=== PATIENT | male | born 2005 | race Two or more races ===

== ENCOUNTER 2024-05-07 21:59 | Emergency (ER) | payer MEDICAID, OTHER ==
[~2024-05-07] VITALS: Ht 182.9 cm; Wt 85.7 kg
[2024-05-07 22:12] VITALS: BP 125/77; PULSE 74; RESP 16; TEMP 98; O2SAT 98
[2024-05-07] MEDS ORDERED: IBUP-1456 PO (22:36)
[2024-05-07] MEDS ORDERED: CYCL-837 PO (22:36)
--- NOTE | 2024-05-07 22:36 | ED.PDOC ---
Back pain HPI HPI Comments 18-YEAR-OLD MALE PRESENTS TO ER WITH COMPLAINTS OF BACK PAIN X1 DAY. PATIENT REPORTS HE STARTED EXPERIENCING LEFT LOWER LUMBAR BACK PAIN AT 4:00 P.M. PRIOR TO ARRIVAL TO ER S/P PICKING UP AN APPROXIMATELY "50 LB" TIRE AT WORK. DENIES ANY TRAUMA/FALLS. HE RATES HIS CURRENT PAIN AN 8/10 TO LEFT LOWER LUMBAR REGION WITH RADIATION DOWN POSTERIOR LEFT LEG. PATIENT PRESENTS TO ER AMBULATORY ON ARRIVAL, WITH STEADY GAIT, IN NO DISTRESS AND STATES HE'S TAKEN TYLENOL WITH SLIGHT RELIEF. DENIES FEVER, BODY ACHES, CHILLS, NIGHT SWEATS, NUMBNESS/TINGLING, SHORTNESS OF BREATH, CHEST PAIN, ABDOMINAL/PELVIC PAIN, EXTREMITY WEAKNESS, CHANGES IN URINATION/BM OR ANY FURTHER SYMPTOMS/COMPLAINTS Chief Complaint: Back Pain Time Seen by MD: 22:03 Primary Care Provider: UNKNOWN Reviewed Notes: Nurses Notes, Medications, Allergies Allergies: Coded Allergies: No Known Drug Allergy (Verified Allergy, Unknown, 05/07/24) Home Meds Active Scripts Ibuprofen (Ibuprofen) 800 Mg Tab, 1 TAB PO TID PRN, #30 TAB 0 Refills Prov:DAVEY LAKE 05/07/24 Cyclobenzaprine Hcl (Cyclobenzaprine Hcl) 5 Mg Tab, 1 TAB PO QHSP, #14 TAB 0 Refills Prov:DAVEY LAKE 05/07/24 Information Source: Patient Mode of Arrival: Ambulatory Past Medical History PAST MEDICAL HISTORY: Anxiety Surgical History: Denies all surgeries Family History Family History: Unknown Social History Smoker: Non-Smoker Alcohol: Denies ETOH Use Drugs: Denies Drug Use Lives In: Home Constitutional: denies: chills, diaphoresis, fatigue, fever, malaise, sweats, weakness, others EENTM: denies: blurred vision, double vision, ear bleeding, ear discharge, ear drainage, ear pain, ear ringing, eye pain, eye redness, hearing loss, mouth pain, mouth swelling, nasal discharge, nose bleeding, nose congestion, nose pain, photophobia, tearing, throat pain, throat swelling, voice changes, others Respiratory: denies: cough, hemoptysis, orthopnea, SOB at rest, shortness of breath, SOB with excertion, stridor, wheezing, others Cardiovascular: denies: chest pain, dizzy spells, diaphoresis, Dyspnea on exertion, edema, irregular heart beat, left arm pain, lightheadedness, palpitations, PND, syncope, others Gastrointestinal: denies: abdomen distended, abdominal pain, blood streaked bowels, constipated, diarrhea, dysphagia, difficulty swallowing, hematemesis, melena, nausea, poor appetite, poor fluid intake, rectal bleeding, rectal pain, vomiting, others Genitourinary: denies: burning, dysuria, flank pain, frequency, hematuria, incontinence, penile discharge, penile sore, pain, testicle pain, testicle swelling, urgency, others Neurological: denies: dizziness, fainting, headache, left sided numbness, left sided weakness, numbness, paresthesia, pre-existing deficit, right sided numbness, right sided weakness, seizure, speech problems, tingling, tremors, weakness, others Musculoskeletal: reports: others ( STATED IN HPI) Integumetry: denies: bruises, change in color, change in hair/nails, dryness, laceration, lesions, lumps, rash, wounds, others Allergic/Immunocompromised: denies: Difficulty Healing, Frequent Infections, Hives, Itching, others Hematologic/Lymphatic: denies: anemia, blood clots, easy bleeding, easy bruising, swollen glands, others Endocrine: denies: excessive hunger, excessive sweating, excessive thirst, excessive urination, flushing, intolerance to cold, intolerance to heat, unexplained weight gain, unexplained weight loss, others Psychiatric: denies: anxiety, bipolar disorder, depression, hopeless, panic disorder, schizophrenia, sleepless, suicidal, others Physical Exam General Appearance: No Apparent Distress HEENT: PERRL/EOMI Neck: Full Range of Motion, Non-Tender, Normal Respiratory: Chest Non-Tender, Lungs Clear, No Accessory Muscle Use, No Respiratory Distress, Normal Breath Sounds Cardiovascular: No Murmur, No Gallop, Regular Rate/Rhythm Breast Exam: Deferred Gastrointestinal: Non Tender, No Pulsatile Mass, Soft Genitalia: Deferred Pelvic: Deferred Rectal: Deferred Extremities: Normal capillary refill, Normal range of motion Musculoskeletal : Extremity Location: Back (TTP TO LEFT LOWER LUMBAR PARASPINALS NOTED. NO SKIN CHANGES NOTED. NO BONY TENDERNESS TO SPINE APPRECIATED. STEADY GAIT NOTED) Neurologic: Alert, photogrammetric compilation specialist II-XII nml as Tested, No Motor Deficits, Normal Affect, Normal Mood, No Sensory Deficits Cerebellar Function: Normal Reflexes: Normal Skin: Dry, Normal Color, Warm Peripheral Pulses: 2+ femoral (R), 2+ femoral (L), 2+ dorsalis pedis (R), 2+ dorsalis pedis (L) Lymphatic: No Adenopathy Was a procedure done? Was a procedure done?: No Sedation Sedation?: No Back Pain Differential Dx Differential Diagnosis: AAA, Fracture, Urolithiasis, Other (NEUROVASCULAR INJURY) X-Ray, Labs, Meds, VS Vital Signs Date Time Temp Pulse Resp B/P (MAP) Pulse Ox O2 Delivery O2 Flow Rate FiO2 05/07/24 22:12 98.0 74 16 125/77 (93) 98 98.0 Current Medications Medications (Trade) Dose Ordered Sig/Tylor Route Start Time Stop Time Status Last Admin Acetaminophen/ Hydrocodone Bitart ([place] 5/325MG Tab) 1 tab ONCE ONCE PO 05/07/24 22:45 05/07/24 22:46 DC 05/07/24 22:46 Ondansetron HCl (Zofran Po) 4 mg ONCE ONCE PO 05/07/24 22:45 05/07/24 22:46 DC 05/07/24 22:46 NORCO 5/325 MG P.O. ORDERED ZOFRAN 4 MG P.O. ORDERED PATIENT NEUROVASCULARLY INTACT AND REPORTED IMPROVEMENT IN SYMPTOMS PRIOR TO DISCHARGE ADVISED ON REST/NO STRENUOUS ACTIVITY PATIENT STATED THAT CURRENT ER VISIT IS NOT UNDER WORKMAN'S COMP ADVISED TO FOLLOW UP WITH PCP IN 1-2 DAYS PATIENT VERBALIZED UNDERSTANDING AND AGREEABLE WITH CURRENT PLAN OF CARE ADVISED TO RETURN TO ER IMMEDIATELY IF SYMPTOMS WORSEN Time of 1ST Reevaluation: 22:12 Reevaluation 1ST: N/A Patient Education/Counseling: Diagnosis, Treatment, Prognosis, Need For Follow Up Family Education/Counseling: No Family Present Departure 1 Departure Time of Disposition: 22:32 Impression: Primary Impression: Lumbar strain Qualified Codes: S39.012A - Strain of muscle, fascia and tendon of lower back, initial encounter Disposition: HOME / SELF CARE / HOMELESS Condition: Stable e-Prescriptions Ibuprofen (Ibuprofen) 800 Mg Tab 1 TAB PO TID PRN, #30 TAB 0 Refills Prov: DAVEY LAKE 05/07/24 Cyclobenzaprine Hcl (Cyclobenzaprine Hcl) 5 Mg Tab 1 TAB PO QHSP, #14 TAB 0 Refills Prov: DAVEY LAKE 05/07/24 Discharged With: Friend Critical Care Note Critical Care Time?: No Stability Stability form required: No Heart Score Heart Score: Heart Score Response (Comments) Value History N/A 0 EKG N/A 0 Age N/A 0 Risk Factors N/A 0 Troponin N/A 0 Total 0 DAVEY LAKE May 07, 2024 22:36
[2024-05-07] MEDS: ONDANSETRON ODT 4 MG TAB PO ONE (22:46)
[2024-05-07] MEDS: HYDROcodone-ACET 5/325MG TAB PO ONE (22:46)
== END 2024-05-07 22:51 | disposition home or self-care (01) ==
LOC: ER 21:59
DX: S39.012A Strain of muscle, fascia and tendon of lower back, initial encounter (principal); F41.9 Anxiety disorder, unspecified; Z79.899 Other long term (current) drug therapy; X58.XXXA Exposure to other specified factors, initial encounter; Y92.89 Other specified places as the place of occurrence of the external cause; Y93.89 Activity, other specified; Y99.0 Civilian activity done for income or pay
CPT/HCPCS: 99283; Q0162

== ENCOUNTER 2024-05-16 20:35 | Emergency (ER) | payer MEDICAID ==
[~2024-05-16] VITALS: Ht 182.9 cm; Wt 87.6 kg
[~2024-05-16 20:35] MED LIST: CYCL-837 PO; IBUP-1456 PO
--- NOTE | 2024-05-16 21:41 | DVH ---
Procedure: CT LS SPINE WO CONTRAST 05/16/2024 09:06 PM Indication: Status post injury and pain Comparison Study: None. Technique: Axial images were obtained and reformatted in coronal and sagittal planes. All CT scans at this medical facility are performed using dose modulation techniques as appropriate t o a performed exam including the following: Automated exposure control was utilized; adjustment of th e MA and/or KV according to patient size; and use of iterative reconstruction technique. CT Dose: CTDI volume is 18 mGy. Dose-length product is 673 mGy*cm FINDINGS: Bones: The vertebra are normal in height. Normal alignment noted. Disc spaces are maintained. No sig nificant discogenic endplate change. The posterior facet joints are unremarkable. The sacroiliac maria t ints are maintained. Soft tissues: Paraspinal soft tissues are within normal limits. Other: None. IMPRESSION: 1. No acute osseous abnormality.
--- NOTE | 2024-05-16 22:03 | DVH ---
CT OF THE THORACIC SPINE WITHOUT CONTRAST HISTORY: Status post injury and pain COMPARISON: None TECHNIQUE: Axial images through the thoracic spine were obtained without contrast. Coronal and sagitt al reformats were obtained. One or more of the following radiation dose reduction techniques were use d for this examination: automated exposure control, adjustment of the mA and/or kV according to patie nt size, use of iterative reconstruction technique. FINDINGS: There are 12 rib-bearing thoracic type vertebral bodies. Alignment is maintained. Vertebral body hei ghts are maintained. There is no acute fracture. Overlying Soft tissues are intact. Visualized lungs are clear. IMPRESSION: No acute fracture or traumatic malalignment.
[2024-05-16] MEDS ORDERED: METH4PAK PO (22:32)
--- NOTE | 2024-05-16 22:32 | ED.PDOC ---
Back pain HPI HPI Comments C/C of back pain. 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 Pt was placed on light modified duty, but placed back to full regular activity this past Sunday and feels like back pain has increased. Reports pain from mid back to lower back. Pt able to ambulate with slow steady gait. Rates pain 07/15. Chief Complaint: Back Pain Time Seen by MD: 20:39 Primary Care Provider: UNKNOWN Reviewed Notes: Nurses Notes, Medications, Allergies Allergies: Coded Allergies: No Known Drug Allergy (Verified Allergy, Unknown, 05/07/24) Home Meds Active Scripts Methylprednisolone (Medrol Dosepak) 4 Mg Prabhjot, 4 MG PO UD for 6 Days, #21 TAB UAD Prov:[facility] 05/16/24 Ibuprofen (Ibuprofen) 800 Mg Tab, 1 TAB PO TID PRN, #30 TAB 0 Refills Prov:DAVEY LAKE 05/07/24 Cyclobenzaprine Hcl (Cyclobenzaprine Hcl) 5 Mg Tab, 1 TAB PO QHSP, #14 TAB 0 Refills Prov:DAVEY LAKE 05/07/24 Information Source: Patient Mode of Arrival: Ambulatory Past Medical History PAST MEDICAL HISTORY: Anxiety Surgical History: Denies all surgeries Family History Family History: Unknown Social History Smoker: Non-Smoker Alcohol: Denies ETOH Use Drugs: Denies Drug Use Lives In: Home Constitutional: denies: chills, diaphoresis, fatigue, fever, malaise, sweats, weakness, others EENTM: denies: blurred vision, double vision, ear bleeding, ear discharge, ear drainage, ear pain, ear ringing, eye pain, eye redness, hearing loss, mouth pain, mouth swelling, nasal discharge, nose bleeding, nose congestion, nose pain, photophobia, tearing, throat pain, throat swelling, voice changes, others Respiratory: denies: cough, hemoptysis, orthopnea, SOB at rest, shortness of breath, SOB with excertion, stridor, wheezing, others Cardiovascular: denies: chest pain, dizzy spells, diaphoresis, Dyspnea on exertion, edema, irregular heart beat, left arm pain, lightheadedness, pa lpitations, PND, syncope, others Gastrointestinal: denies: abdomen distended, abdominal pain, blood streaked bowels, constipated, diarrhea, dysphagia, difficulty swallowing, hematemesis, melena, nausea, poor appetite, poor fluid intake, rectal bleeding, rectal pain, vomiting, others Genitourinary: denies: burning, dysuria, flank pain, frequency, hematuria, incontinence, penile discharge, penile sore, pain, testicle pain, testicle swelling, urgency, others Neurological: denies: dizziness, fainting, headache, left sided numbness, left sided weakness, numbness, paresthesia, pre-existing deficit, right sided numbness, right sided weakness, seizure, speech problems, tingling, tremors, weakness, others Musculoskeletal: reports: back pain; denies: gout, joint pain, joint swelling, muscle pain, muscle stiffness, neck pain, others Integumetry: denies: bruises, change in color, change in hair/nails, dryness, laceration, lesions, lumps, rash, wounds, others Allergic/Immunocompromised: denies: Difficulty Healing, Frequent Infections, Hives, Itching, others Hematologic/Lymphatic: denies: anemia, blood clots, easy bleeding, easy bruising, swollen glands, others Endocrine: denies: excessive hunger, excessive sweating, excessive thirst, excessive urination, flushing, intolerance to cold, intolerance to heat, unexplained weight gain, unexplained weight loss, others Psychiatric: denies: anxiety, bipolar disorder, depression, hopeless, panic disorder, schizophrenia, sleepless, suicidal, others Physical Exam General Appearance: No Apparent Distress, Normal HEENT: Pharynx Normal Neck: Full Range of Motion, Non-Tender Respiratory: Lungs Clear, No Respiratory Distress, Normal Breath Sounds Cardiovascular: No Edema, No JVD, No Murmur, No Gallop, Normal Peripheral Pulses, Regular Rate/Rhythm Breast Exam: Deferred Gastrointestinal: No Organomegaly, Non Tender, No Pulsatile Mass, Normal Bowel Sounds, Soft Genitalia: Deferred Pelvic: Deferred Rectal: Deferred Extremities: Normal capillary refill, Normal inspection, Normal range of motion, Non-tender, No pedal edema Musculoskeletal : Location: Left Extremity Location: Back (Moderate tenderness on palpation T8 through L1 paraspinal muscles. Thoracic and lumbar spine no noted crepitus or step-offs. Strength sensory motion intact. Positive pedal pulses. 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 Was a procedure done?: No Back Pain Differential Dx Differential Diagnosis: Fracture, Musculoskeletal Pain X-Ray, Labs, Meds, VS Vital Signs Date Time Temp Pulse Resp B/P (MAP) Pulse Ox O2 Delivery O2 Flow Rate FiO2 05/16/24 22:45 82 18 96 Room Air 05/16/24 22:45 98.1 82 18 118/65 (82) 96 98.1 05/16/24 20:48 98.3 73 16 151/95 (113) 99 98.3 Current Medications Medications (Trade) Dose Ordered Sig/Tylor Route Start Time Stop Time Status Last Admin Acetaminophen/ Hydrocodone Bitart ([place] 5/325MG Tab) 1 tab ONCE ONCE PO 05/16/24 22:30 05/16/24 22:31 DC 05/16/24 22:43 Ibuprofen (Motrin Tablet) 600 mg ONCE ONCE PO 05/16/24 22:30 05/16/24 22:31 DC 05/16/24 22:43 X-Ray, Labs, Meds, VS Comment CT thoracic and lumbar spine show no acute fractures osseous lesions, or subluxations shows no chronic arthritic changes as well. Patient given [place] 5 mg and ibuprofen 600 mg he reports improvement in pain and symptoms and function requesting discharge at this time. Advised patient to f ollow up with [facility] recommend physical therapy. Advised to follow up with his PCP in 2-3 days consider further imaging such as MRI if symptoms persist. Discussed ice and heat. ER return precautions given patient indicates understanding and agrees with discharge plan of care. Time of 1ST Reevaluation: 22:30 Reevaluation 1ST: Improved Patient Education/Counseling: Diagnosis, Treatment, Prognosis, Need For Follow Up Family Education/Counseling: Diagnosis, Treatment, Prognosis, Need For Follow Up Departure 1 Departure Time of Disposition: 22:41 Impression: Primary Impression: Lumbar sprain Qualified Codes: S33.5XXD - Sprain of ligaments of lumbar spine, subsequent encounter Additional Impression: Musculoskeletal pain Disposition: HOME / SELF CARE / HOMELESS Condition: Stable e-Prescriptions Methylprednisolone (Medrol Dosepak) 4 Mg Prabhjot 4 MG PO UD for 6 Days, #21 TAB UAD Prov: SOLIS NICHOLSON 05/16/24 Discharged With: Significant Other Critical Care Note Critical Care Time?: No Stability Stability form required: SOLIS Wilks May 16, 2024 22:32
[2024-05-16] MEDS: IBUPROFEN 600 MG TAB PO ONE (22:43)
[2024-05-16] MEDS: HYDROcodone-ACET 5/325MG TAB PO ONE (22:43)
[2024-05-16 22:45] VITALS: BP 118/65; PULSE 82; RESP 18; TEMP 98.1; O2SAT 96
== END 2024-05-16 23:02 | disposition home or self-care (01) ==
LOC: ER 20:35
DX: S33.5XXA Sprain of ligaments of lumbar spine, initial encounter (principal); M79.18 Myalgia, other site; F41.9 Anxiety disorder, unspecified; X58.XXXA Exposure to other specified factors, initial encounter; Y93.89 Activity, other specified; Y92.89 Other specified places as the place of occurrence of the external cause; Y99.0 Civilian activity done for income or pay
CPT/HCPCS: 72128; 72131

== ENCOUNTER 2024-06-17 11:17 | Emergency (ER) | payer MEDICAID, OTHER ==
[~2024-06-17] VITALS: Ht 182.9 cm; Wt 88.4 kg
[2024-06-17] MEDS: KETOROLAC TROMETH 30 MG/ML 1ML VIAL IM ONE (11:58)
--- NOTE | 2024-06-17 12:00 | ED.PDOC ---
Back pain HPI HPI Comments 18-YEAR-OLD MALE PRESENTS TO ER WITH COMPLAINTS OF BACK PAIN. INJURY OCCURRED May. HAS BEEN SEEN TWICE FOR THE SAME COMPLAINT PATIENT REPORTS HE STARTED EXPERIENCING LEFT LOWER LUMBAR BACK PAIN AT 4:00 P.M. PRIOR TO ARRIVAL TO ER S/P PICKING UP AN APPROXIMATELY "50 LB" TIRE AT WORK. DENIES ANY TRAUMA/FALLS. HE RATES HIS CURRENT PAIN MODERATE. PATIENT PRESENTS TO ER AMBULATORY ON ARRIVAL, WITH STEADY GAIT, IN NO DISTRESS AND STATES HE'S TAKEN TYLENOL WITH SLIGHT RELIEF. DENIES FEVER, BODY ACHES, CHILLS, NIGHT SWEATS, NUMBNESS/TINGLING, SHORTNESS OF BREATH, CHEST PAIN, ABDOMINAL/PELVIC PAIN, EXTREMITY WEAKNESS, CHANGES IN URINATION/BM OR ANY FURTHER SYMPTOMS/COMPLAINTS Chief Complaint: Back Pain Time Seen by MD: 11:27 Primary Care Provider: NONE Reviewed Notes: Nurses Notes, Medications, Allergies Allergies: Coded Allergies: No Known Drug Allergy (Verified Allergy, Unknown, 05/07/24) Home Meds Active Scripts Ibuprofen (Ibuprofen) 800 Mg Tab, 1 TAB PO TID PRN, #30 TAB 0 Refills Prov:DAVEY LAKE 05/07/24 Cyclobenzaprine Hcl (Cyclobenzaprine Hcl) 5 Mg Tab, 1 TAB PO QHSP, #14 TAB 0 Refills Prov:DAVEY LAKE 05/07/24 Information Source: Patient Mode of Arrival: Ambulatory Past Medical History PAST MEDICAL HISTORY: Anxiety Surgical History: Denies all surgeries Family History Family History: Unknown Social History Smoker: Non-Smoker Alcohol: Denies ETOH Use Drugs: Denies Drug Use Lives In: Home All Other Systems: Reviewed and Negative (per hpi) Physical Exam General Appearance: No Apparent Distress, Normal HEENT: Normal ENT Inspection, Pharynx Normal, TMs Normal Neck: Full Range of Motion, Non-Tender, Normal, Normal Inspection Respiratory: Chest Non-Tender, Lungs Clear, No Accessory Muscle Use, No Respiratory Distress, Normal Breath Sounds Cardiovascular: No Edema, No JVD, No Murmur, No Gallop, Normal Peripheral Pulses, Regular Rate/Rhythm Breast Exam: Deferred Gastrointestinal: No Organomegaly, Non Tender, No Pulsatile Mass, Normal Bowel Sounds, Soft Genitalia: Deferred Pelvic: Deferred Rectal: Deferred Extremities: No calf tenderness, Normal capillary refill, Normal inspection, Normal range of motion, Non-tender, No pedal edema Musculoskeletal : Apperance: Normal Neurologic: Alert, pressing machine tender II-XII nml as Tested, No Motor Deficits, Normal Affect, Normal Mood, No Sensory Deficits Cerebellar Function: Normal Reflexes: Normal Skin: Dry, Normal Color, Warm Lymphatic: No Adenopathy Was a procedure done? Was a procedure done?: No Back Pain Differential Dx Differential Diagnosis: Musculoskeletal Pain X-Ray, Labs, Meds, VS Vital Signs Date Time Temp Pulse Resp B/P (MAP) Pulse Ox O2 Delivery O2 Flow Rate FiO2 06/17/24 12:10 96 16 96 Room Air 06/17/24 12:10 98.0 97 17 135/68 (90) 97 98.0 06/17/24 11:21 97.8 105 20 141/75 (97) 96 97.8 X-Ray, Labs, Meds, VS Comment Presentation most consistent with nonemergent musculoskeletal etiology versus nonemergent disc herniation. ED workup: Defer imaging and lab work for outpatient follow up at this time. Patient advised to follow up with the Occupational Health Disposition: Discharge. Strict return precautions discussed with the patient with full understanding. Supportive care advised (rest, ice, heat, NSAIDs, stretching exercises) Massage muscles with cold pack or ice for 20 minutes 4 times per day. Usually most useful if there is swelling during the first 48 hours Heating pad on the most painful area for 20 minutes to relieve muscle spasm Sleep and the most comfortable sleeping position (usually on the side with knees bent) Light stretching, no strenuous activity, avoid frequent bending, avoid carrying heavy objects Discussed possible benefits of yoga and acupuncture Patient is stable for discharge at this time. External notes reviewed. Test results and diagnostic imaging interpreted. All diagnostic findings, discharge care, education and instructions provided Follow-up with PCP in 2 to 3 days Patient verbalized understanding and agreed to treatment plan Vital signs stable, afebrile, no acute distress noted Patient ambulatory with strong steady gait Advised to return precautions for any new or worsening symptoms, return to ER immediately for re-evaluation Patient is aware that the purpose of this visit was for an acute medical emergency requiring emergent stabilization. Chronic conditions, including malignancies have not been ruled out. Patient is instructed to follow up with PCP as directed and discharge instructions for continued care and workup. If unable to arrange follow-up, patient is to return to the emergency department for reassessment. Patient (parent or legal guardian if applicable) was given verbal and written discharge instructions and acknowledges understanding. Time of 1ST Reevaluation: 12:00 Reevaluation 1ST: Improved Patient Education/Counseling: Diagnosis, Treatment Family Education/Counseling: Diagnosis, Treatment Departure 1 Departure Time of Disposition: 12:00 Impression: Primary Impression: Lumbar strain Qualified Codes: S39.012S - Strain of muscle, fascia and tendon of lower back, sequela Disposition: HOME / SELF CARE / HOMELESS Condition: Stable Critical Care Note Critical Care Time?: No Stability Stability form required: No Heart Score Heart Score: Heart Score Response (Comments) Value History N/A 0 EKG N/A 0 Age N/A 0 Risk Factors N/A 0 Troponin N/A 0 Total 0 VAN ESPINOZA NP June 17, 2024 12:00
[2024-06-17 12:10] VITALS: BP 135/68; PULSE 96; RESP 16; TEMP 98; O2SAT 96
== END 2024-06-17 12:12 | disposition home or self-care (01) ==
LOC: ER 11:19
DX: S39.012A Strain of muscle, fascia and tendon of lower back, initial encounter (principal); F41.9 Anxiety disorder, unspecified; X58.XXXA Exposure to other specified factors, initial encounter; Y93.89 Activity, other specified; Y92.89 Other specified places as the place of occurrence of the external cause; Y99.0 Civilian activity done for income or pay
CPT/HCPCS: J1885

== ENCOUNTER 2024-07-13 22:52 | Emergency (ER) | payer MEDICAID, OTHER ==
[~2024-07-13] VITALS: Ht 182.9 cm; Wt 85.5 kg
[2024-07-13 23:05] VITALS: BP 137/87; RESP 30; TEMP 98.2; O2SAT 100
[2024-07-13 23:07] VITALS: PULSE 123
--- NOTE | 2024-07-13 23:07 | ED.PDOC ---
History of Present Illness HPI Comments 18-year-old obese male presents with complaint of chest pain, palpitations, and bilateral hand tingling sensations following unknown substance indigestion. Patient reports taken an unknown substance from another individual from a [employer] he was attending at, earlier, this evening. He states on taking half a dose of his usual Xanax prescription medication for panic attacks, with no relief or improvement of symptoms. No further associated symptoms reported. No endorsement of further significant medical history or other illicit substance use. Time Seen by MD: 23:00 Primary Care Provider: NONE Reviewed Notes: Nurses Notes, Medications, Allergies Allergies: Coded Allergies: No Known Drug Allergy (Verified Allergy, Unknown, 05/07/24) Home Meds Active Scripts Ibuprofen (Ibuprofen) 800 Mg Tab, 1 TAB PO TID PRN, #30 TAB 0 Refills Prov:DAVEY LAKE 05/07/24 Cyclobenzaprine Hcl (Cyclobenzaprine Hcl) 5 Mg Tab, 1 TAB PO QHSP, #14 TAB 0 Refills Prov:DAVEY LAKE 05/07/24 Information Source: Patient Mode of Arrival: Ambulatory Severity: Moderate Timing: Hours Duration: Since onset Prehospital treatment: Other (Prescription Xanax medication use) Past Medical History PAST MEDICAL HISTORY: Anxiety (On Xanax) Surgical History: Denies all surgeries Family History Family History: Unknown Social History Smoker: Non-Smoker Alcohol: Denies ETOH Use Drugs: Denies Drug Use Lives In: Home Constitutional: denies: chills, diaphoresis, fatigue, fever, malaise, sweats, weakness, others EENTM: denies: blurred vision, double vision, ear bleeding, ear discharge, ear drainage, ear pain, ear ringing, eye pain, eye redness, hearing loss, mouth pain, mouth swelling, nasal discharge, nose bleeding, nose congestion, nose devan n, photophobia, tearing, throat pain, throat swelling, voice changes, others Respiratory: denies: cough, hemoptysis, orthopnea, SOB at rest, shortness of breath, SOB with excertion, stridor, wheezing, others Cardiovascular: reports: chest pain, palpitations; denies: dizzy spells, diaphoresis, Dyspnea on exertion, edema, irregular heart beat, left arm pain, lightheadedness, PND, syncope, others Gastrointestinal: denies: abdomen distended, abdominal pain, blood streaked bowels, constipated, diarrhea, dysphagia, difficulty swallowing, hematemesis, melena, nausea, poor appetite, poor fluid intake, rectal bleeding, rectal pain, vomiting, others Genitourinary: denies: burning, dysuria, flank pain, frequency, hematuria, incontinence, penile discharge, penile sore, pain, testicle pain, testicle swelling, urgency, others Neurological: denies: dizziness, fainting, headache, left sided numbness, left sided weakness, numbness, paresthesia, pre-existing deficit, right sided numbness, right sided weakness, seizure, speech problems, tingling, tremors, weakness, others Musculoskeletal: reports: others (Hand tingling); denies: back pain, gout, joint pain, joint swelling, muscle pain, muscle stiffness, neck pain Integumetry: denies: bruises, change in color, change in hair/nails, dryness, laceration, lesions, lumps, rash, wounds, others Allergic/Immunocompromised: denies: Difficulty Healing, Frequent Infections, Hives, Itching, others Hematologic/Lymphatic: denies: anemia, blood clots, easy bleeding, easy bruising, swollen glands, others Endocrine: denies: excessive hunger, excessive sweating, excessive thirst, excessive urination, flushing, intolerance to cold, intolerance to heat, unexplained weight gain, unexplained weight loss, others Psychiatric: reports: anxiety; denies: bipolar disorder, depression, hopeless, panic disorder, schizophrenia, sleepless, suicidal, others All Other Systems: Reviewed and Negative (Comprehensive review of systems are negative unless otherwise stated in HPI) Physical Exam General Appearance: Moderate Distress (Patient appears anxious and intoxicated on an unknown substance.), Normal HEENT: Pharynx Normal, TMs Normal, Other (Pupils appear mildly dilated.) Neck: Full Range of Motion, Non-Tender, Normal, Normal Inspection Respiratory: Chest Non-Tender, Lungs Clear, No Accessory Muscle Use, No Respiratory Distress, Normal Breath Sounds Cardiovascular: No Edema, No JVD, No Murmur, No Gallop, Normal Peripheral Pulses, Regular Rate/Rhythm Breast Exam: Deferred Gastrointestinal: No Organomegaly, Non Tender, No Pulsatile Mass, Normal Bowel Sounds, Soft Genitalia: Deferred Pelvic: Deferred Rectal: Deferred Extremities: No calf tenderness, Normal capillary refill, Normal inspection, Normal range of motion, Non-tender, No pedal edema Neurologic: Alert, No Motor Deficits, No Sensory Deficits Cerebellar Function: NOT DONE Reflexes: NOT DONE Skin: Dry, Normal Color, Warm Lymphatic: No Adenopathy Was a procedure done? Was a procedure done?: No EKG EKG : Pulse Rate (adult): 123 [place]: Normal Cardiac Rhythm: ST Block: None Hypertrophy: None ST: Normal Differential Dx Considerations may include: anxiety, substance intoxication, substance abuse/dependency, panic attack, among others X-Ray, Labs, Meds, VS Vital Signs Date Time Temp Pulse Resp B/P (MAP) Pulse Ox O2 Delivery O2 Flow Rate FiO2 07/13/24 23:07 123 07/13/24 23:05 98.2 130 30 137/87 (104) 100 98.2 07/13/24 23:00 123 Lab Test 07/13/24 23:14 07/13/24 23:06 Range/Units White Blood Count Pending Red Blood Count Pending Hemoglobin Pending Hematocrit Pending Mean Corpuscular Volume Pending Mean Corpuscular Hemoglobin Pending Mean Corpuscular Hemoglobin Concent Pending Red Cell Distribution Width Pending Platelet Count Pending Mean Platelet Volume Pending Neutrophils (%) (Auto) Pending Lymphocytes (%) (Auto) Pending Monocytes (%) (Auto) Pending Basophils (%) (Auto) Pending Neutrophils # (Auto) Pending Lymphocytes # (Auto) Pending Monocytes # (Auto) Pending Sodium Level 140 136-145 mmol/L Potassium Level 3.4 L 3.5-5.1 mmol/L Chloride Level 104 98-107 mmol/L Carbon Dioxide Level 24 20-31 mmol/L Anion Gap 12 5-15 Blood Urea Nitrogen 13 9-23 mg/dL Creatinine 1.17 0.700-1.30 mg/dL Glomerular Filtration Rate Calc 92 >90 mL/min BUN/Creatinine Ratio 11.1 10.0-20.0 Serum Glucose 110 H 74-106 mg/dL Calcium Level 9.9 8.7-10.4 mg/dL Urine Color Pending Urine Clarity Pending Urine pH Pending Urine Specific Protem Pending Urine Protein Pending Urine Ketones Pending Urine Blood Pending Urine Nitrite Pending Urine Bilirubin Pending Urine Urobilinogen Pending Urine Leukocyte Esterase Pending Urine RBC Pending Urine Microscopic WBC Pending Urine Squamous Epithelial Cells Pending Urine Bacteria Pending Urine Glucose Pending Urine Opiates Screen Neg NEGATIVE Urine Fentanyl Screen Neg NEGATIVE Urine Barbiturates Screen Neg NEGATIVE Urine Phencyclidine Screen Neg NEGATIVE Urine Amphetamines Screen Neg NEGATIVE Urine Benzodiazepines Screen Neg NEGATIVE Urine Cocaine Screen Pos NEGATIVE Urine Cannabinoids Screen Neg NEGATIVE X-Ray, Labs, Meds, VS Comment All studies performed the ED were evaluated by me personally. EKG revealed a sinus tachycardia with a rate of 123. Possible right atrial enlargement and possible right ventricular hypertrophy. NE interval of 156 and QT interval of 318. Serum laboratories were unremarkable, but tox screen confirmed cocaine use. Urinalysis was pending at time of this note patient came to the window and informed staff that he felt that at her was went to leave. Patient was advised to stay, but stated he was leaving. Patient signed an AMA form prior to leaving the campus. Time of 1ST Reevaluation: 23:56 Reevaluation 1ST: Improved Consultation: PCP Patient Education/Counseling: Diagnosis, Treatment, Need For Follow Up Family Education/Counseling: Diagnosis, Treatment, No Family Present Departure 1 Departure Time of Disposition: 23:58 Impression: Primary Impression: Anxiety Additional Impression: Cocaine use Disposition: 07 LEFT AGAINST MEDICAL ADVICE Condition: Fair Discharged With: Self Critical Care Note Critical Care Time?: No Stability Stability form required: No Heart Score Heart Score: Heart Score Response (Comments) Value History Slightly Suspicious 0 EKG Repolarization Disturb 1 Age <45 0 Risk Factors No known risk factors 0 Troponin Normal limit 0 Total 1 I personally scribed for ALEXANDR CARRASCO PAC ([email or web address]) on 07/13/24 at 23:07. Electronically submitted by Mark Aponte ([email or web address]). ALEXANDR CARRASCO PAC Jul 13, 2024 23:07
[2024-07-13] MEDS ORDERED: SODIUM CHLORIDE 0.9% 1,000 ML IV ONE (23:15)
[2024-07-13 23:16] LABS: Urine Bacteria None Seen /hpf (None Seen)
[2024-07-13 23:36] LABS: Basophils # (auto) 0 10 ^3/uL (0-0.2); Basophils % (auto) 0.6 % (0.0-2.0); Eosinophils # (auto) 0.1 10 ^3/uL (0-0.8); Eosinophils % (auto) 1.5 % (0.0-7.0); Hematocrit 42.7 % (41.0-53.0); Hemoglobin 15.1 g/dL (13.5-17.5); Lymphocytes # (auto) 1.6 10 ^3/uL (0.4-5.4); Lymphocytes % (auto) 30.2 % (10.0-50.0); Mean Corpuscular Hgb Conc. 35.5 g/dL (32.0-36.0); Mean Corpuscular Volume 81.7 fL (80.0-100.0); Monocytes # (auto) 0.3 10 ^3/uL (0-1.3); Monocytes % (auto) 6.2 % (0.0-12.0); Neutrophils # (auto) 3.3 10 ^3/uL (1.6-8.6); Neutrophils % (auto) 61.5 % (37.0-80.0); Nucleated Red Blood Cells % 0.1 %; Platelet Count (auto) 239 10^3/uL (140-450); Red Blood Cells 5.22 10^6/uL (4.5-5.90); Red Cell Distribution Width 13.1 % (11.8-14.3); White Blood Cell 5.3 10^3/uL (4.4-10.8)
[2024-07-13 23:38] LABS: Urine Blood Negative /uL (Negative); Urine Clarity Clear (Clear); Urine Color Light-Yellow (Yellow); Urine Protein, UAD Negative (Negative); Urine Specific Gravity 1.015 (1.001-1.035); Urine Squamous Epithelial Cell None Seen /hpf (<5); Urine Urobilinogen Normal (Negative); Urine WBC < 1 /HPF (0-3)
[2024-07-13 23:40] LABS: Chloride 104 mmol/L (98-107); Sodium 140 mmol/L (136-145)
[2024-07-13 23:41] LABS: Anion Gap 12 (5-15); Calcium 9.9 mg/dL (8.7-10.4); Carbon Dioxide 24 mmol/L (20-31)
[2024-07-13 23:43] LABS: Potassium 3.4 mmol/L (3.5-5.1)
[2024-07-13 23:45] LABS: Opiate Scree,Urine Neg (NEGATIVE)
[2024-07-13 23:46] LABS: BUN/Creatinine Ratio 11.1 (10.0-20.0); Blood Urea Nitrogen 13 mg/dL (9-23)
[2024-07-13 23:48] LABS: Amphetamine Screen, Urine Neg (NEGATIVE); Barbiturate Scree,Urine Neg (NEGATIVE); Benzodiazephine Screen, Urine Neg (NEGATIVE); Cannabinoid Screen, Urine Neg (NEGATIVE); Cocaine Screen, Urine Pos (NEGATIVE); Phencyclidine Screen, Urine Neg (NEGATIVE)
[2024-07-13 23:52] LABS: Glucose 110 mg/dL (74-106)
--- NOTE | 2024-07-14 12:24 | ECG ---
[facility] Test Date: 2024-07-13 Test Time: 23:00:20 Pat Name: ARIEL US Department: ED Room: Gender: M Insulation Professional: : [id number] Requested By: ALEXANDR CARRASCO Order Number: [id number] Reading MD: Aniket Frost Measurements Intervals Speculator Rate: 123 P: 79 [place]: 156 QRS: 96 QRSD: 95 T: 29 QT: 318 QTc: 455 Interpretive Statements Sinus tachycardia Consider right atrial enlargement Consider right ventricular hypertrophy Electronically Signed On 07-16-2024 20:56:31 PDT by Aniket Frost Please click the below link to view image of tracing.
== END 2024-07-13 23:48 | disposition left against medical advice (07) ==
LOC: ER 22:52
DX: F14.90 Cocaine use, unspecified, uncomplicated (principal); F41.9 Anxiety disorder, unspecified; E66.9 Obesity, unspecified; Z79.899 Other long term (current) drug therapy
CPT/HCPCS: 36415; 80048; 80307; 81001; 85025; 93005

== ENCOUNTER 2024-08-03 19:00 | Emergency (ER) | payer MEDICAID ==
[~2024-08-03] VITALS: Ht 182.9 cm; Wt 180.0 kg
--- NOTE | 2024-08-03 19:06 | ED.PDOC ---
SOB-HPI HPI Comments PT PRESENTS TO ED W/CC OF SOB. PT SAYS HE WAS HAVING BACK PAIN TODAY SO HE TOOK PERCOCET FOR PAIN AND ALSO SMOKED MARIJUANA, AFTER WHICH PATIENT REPORTS FEELING LIKE HE IS BREATHING SLOW AND IS CONCERNED THAT HE IS NOT GETTING ENOUGH OXYGEN. CURRENTLY PT A&OX4, VSS, RR EVEN UNLABORED ON RA. Time Seen by MD: 19:03 Primary Care Provider: NONE Reviewed notes: Nurses Notes, Medications, Allergies Information Source: Patient Past Medical History PAST MEDICAL HISTORY: Anxiety Surgical History: Denies all surgeries Family History Family History: Reviewed,noncontributory to illness, Unknown Social History Smoker: Non-Smoker Alcohol: Denies ETOH Use Drugs: Denies Drug Use Lives In: Home Constitutional: reports: weakness, others (SLEEPINESS); denies: chills, diaphoresis, fatigue, fever, malaise, sweats EENTM: denies: blurred vision, double vision, ear bleeding, ear discharge, ear drainage, ear pain, ear ringing, eye pain, eye redness, hearing loss, mouth pain, mouth swelling, nasal discharge, nose bleeding, nose congestion, nose pain, photophobia, tearing, throat pain, throat swelling, voice changes, others Respiratory: reports: cough, shortness of breath; denies: hemoptysis, orthopnea, SOB at rest, SOB with excertion, stridor, wheezing, others Cardiovascular: denies: chest pain, dizzy spells, diaphoresis, Dyspnea on exertion, edema, irregular heart beat, left arm pain, lightheadedness, palpit ations, PND, syncope, others Gastrointestinal: denies: abdomen distended, abdominal pain, blood streaked b owels, constipated, diarrhea, dysphagia, difficulty swallowing, hematemesis, melena, nausea, poor appetite, poor fluid intake, rectal bleeding, rectal pain, vomiting, others Genitourinary: denies: burning, dysuria, flank pain, frequency, hematuria, incontinence, penile discharge, penile sore, pain, testicle pain, testicle swelling, urgency, others Neurological: denies: dizziness, fainting, headache, left sided numbness, left sided weakness, numbness, paresthesia, pre-existing deficit, right sided numbness, right sided weakness, seizure, speech problems, tingling, tremors, weakness, others Musculoskeletal: denies: back pain, gout, joint pain, joint swelling, muscle pain, muscle stiffness, neck pain, others Integumetry: denies: bruises, change in color, change in hair/nails, dryness, laceration, lesions, lumps, rash, wounds, others Allergic/Immunocompromised: denies: Difficulty Healing, Frequent Infections, Hives, Itching, others Hematologic/Lymphatic: denies: anemia, blood clots, easy bleeding, easy bruisi ng, swollen glands, others Endocrine: denies: excessive hunger, excessive sweating, excessive thirst, exce ssive urination, flushing, intolerance to cold, intolerance to heat, unexplained weight gain, unexplained weight loss, others Psychiatric: denies: anxiety, bipolar disorder, depression, hopeless, panic disorder, schizophrenia, sleepless, suicidal, others Physical Exam General Appearance: No Apparent Distress, Normal HEENT: Normal ENT Inspection, Pharynx Normal, TMs Normal Neck: Full Range of Motion, Non-Tender Respiratory: Chest Non-Tender, Lungs Clear, No Accessory Muscle Use, No Respiratory Distress, Normal Breath Sounds Cardiovascular: No Edema, No JVD, No Murmur, No Gallop, Normal Peripheral Pulses, Regular Rate/Rhythm Breast Exam: Deferred Gastrointestinal: No Organomegaly, Non Tender, No Pulsatile Mass, Normal Bowel Sounds, Soft Genitalia: Deferred Pelvic: Deferred Rectal: Deferred Extremities: Normal capillary refill, Normal inspection, Normal range of ramo on, Non-tender, No pedal edema Musculoskeletal : Apperance: Normal Neurologic: Alert, Dizziness, No Motor Deficits, Normal Affect, Normal Mood, No Sensory Deficits Cerebellar Function: Normal Reflexes: Normal Skin: Dry, Normal Color, Warm Lymphatic: No Adenopathy Was a procedure done? Was a procedure done?: No Differential Dx Differential Diagnosis: Anxiety, Asthma, Bronchitis, Panic Attack, Pneumonia, Pneumothorax, Sinusitis, Allergic Rhinitis, URI X-Ray, Labs, Meds, VS Vital Signs Date Time Temp Pulse Resp B/P (MAP) Pulse Ox O2 Delivery O2 Flow Rate FiO2 08/03/24 20:27 19 98 Room Air* 0 21 08/03/24 20:01 97.5 107 20 99/60 (73) 100 97.5 08/03/24 20:01 107 20 100 Room Air 08/03/24 19:24 98.9 87 16 136/82 (100) 100 98.9 Current Medications Medications (Trade) Dose Ordered Sig/Tylor Route Start Time Stop Time Status Last Admin Sodium Chloride 1,000 ml @ 1,000 mls/hr Q1H ONCE IV 08/03/24 19:30 08/03/24 20:29 DC 08/03/24 20:23 Time of 1ST Reevaluation: 19:06 Reevaluation 1ST: Unchanged Patient Education/Counseling: Diagnosis, Treatment, Prognosis, Need For Follow Up Family Education/Counseling: No Family Present SEPSIS Sepsis Screen Physician Orders Heplock Iv (08/03/24 ) Drug Screen (08/03/24 19:19) Vital Signs Date Time Temp Pulse Resp B/P (MAP) Pulse Ox O2 Delivery O2 Flow Rate FiO2 08/03/24 20:27 19 98 Room Air* 0 21 08/03/24 20:01 97.5 107 20 99/60 (73) 100 97.5 08/03/24 20:01 107 20 100 Room Air 08/03/24 19:24 98.9 87 16 136/82 (100) 100 98.9 Medications Medications Dose Ordered Sig/Tylor Route Start Time Stop Time Status Last Admin Dose Admin Sodium Chloride 1,000 ml @ 1,000 mls/hr Q1H ONCE IV 08/03/24 19:30 08/03/24 20:29 DC 08/03/24 20:23 Departure 1 Departure Time of Disposition: 20:51 Impression: Primary Impression: Anxiety Additional Impression: Accidental overdose Qualified Codes: T50.901A - Poisoning by unspecified drugs, medicaments and biological substances, accidental (unintentional), initial encounter Disposition: 01 HOME / SELF CARE / HOMELESS Condition: Stable Discharged With: Self Critical Care Note Critical Care Time?: No Stability Stability form required: SOLIS Wilks [facility] Aug 03, 2024 19:06
[2024-08-03 20:01] VITALS: BP 99/60; PULSE 107; TEMP 97.5
[2024-08-03] MEDS: SODIUM CHLORIDE 0.9% 1,000 ML IV ONE (20:23)
[2024-08-03 20:27] VITALS: RESP 19; O2SAT 98
== END 2024-08-03 21:08 | disposition home or self-care (01) ==
LOC: ER 19:00
DX: T50.991A Poisoning by other drugs, medicaments and biological substances, accidental (unintentional), initial encounter (principal); F41.9 Anxiety disorder, unspecified; Y92.89 Other specified places as the place of occurrence of the external cause
CPT/HCPCS: 96360; 99283; J7030